=== PATIENT | male | born 1960 ===

== ENCOUNTER 2020-08-24 12:28 | Emergency (ER) | payer OTHER ==
[2020-08-24] MEDS ORDERED: Sodium Chloride 0.9% 10 ML Syringe FLUSH PRN (12:58)
--- NOTE | 2020-08-24 12:58 | EDM.PDOC ---
ED HPI GENERAL MEDICAL PROBLEM - General Chief Complaint: Gastrointestinal Problem Stated Complaint: DIZZINESS, NAUSEA Time Seen by Provider: 08/24/20 12:55 Source of Information: Reports: Patient, Significant Other. Denies: Old Records (No [facility] records available) History Limitations: Reports: No Limitations - History of Present Illness INITIAL COMMENTS - FREE TEXT/NARRATIVE: Patient was brought to the emergency room via private automobile by his significant other for evaluation of progressive vertigo and dizziness associated with some diaphoresis, nausea, and one episode of emesis shortly prior to arrival. Patient did take 1 Dramamine, however MS occurred shortly thereafter. The patient denies any chest pain/pressure, heart flutter, orthostasis, ortho pnea, paresthesias, recent decreased exercise tolerance, or any other anginal- type symptoms. No recent history of abdominal pain, heartburn, diarrhea, melena, gross hematochezia, or any food intolerance, including fatty foods, etc. with normal bowel movement earlier this morning. He denies any gross hematuria, colic, or UTI symptoms. The patient also denies any recent fever, cough, wheezing, dyspnea, etc.. No history of recent headaches, visual changes, diplopia, change in mental status, or other change in neurological status. He denies current pain or any known exposure to infection or food poisoning. Onset: Today, Sudden Onset Date: 08/24/20 Onset Time: 11:30 Duration: Getting Worse, Intermittent Location: Reports: Other (No pain) Quality: Reports: Same as Previous Episode Improves with: Reports: None Worsens with: Reports: None Context: Reports: Other (As above). Denies: Sick Contact, Trauma Associated Symptoms: Reports: Nausea/Vomiting. 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 Denies: Allergic Rhinitis, Cataract, Glaucoma, Hard of Hearing, Macular Degeneration, Otitis Media, Retinal Detachment Other HEENT History: Reading glasses. Cardiovascular History: Reports: Heart Murmur, High Cholesterol, Hypertension, Other (See Below). Denies: Afib, Aneurysm, Arrhythmia, Blood Clots/VTE/DVT, CAD, VA, PVD, Syncope Other Cardiovascular History: Hypertension and hyperlipidemia with no current medical therapy. Benign functional heart murmur. Respiratory History: Reports: None. Denies: Asthma, Bronchitis, Recurrent, COPD, Intubation, Previous, PE, Pneumonia, Recurrent, Pneumothorax, Sleep Apnea, TB Gastrointestinal History: Reports: None. Denies: Bowel Obstruction, Celiac Disease, Cholelithiasis, Chronic Constipation, Chronic Diarrhea, Colon Polyp, Diverticulosis, Gastritis, GERD, GI Bleed, Hepatitis, Inflammatory Bowel Disease, Irritable Bowel Syndrome, Jaundice, Pancreatitis Genitourinary History: Reports: None. Denies: Acute Renal Failure, BPH, Chronic Renal Insuffiency, Renal Calculus, Retention, Urinary, STD, Urinary Incontinence, UTI, Recurrent Musculoskeletal History: Reports: Other (See Below). Denies: Amputation, Arthritis, Back Pain, Chronic, Gout, Neck Pain, Chronic, Osteoarthritis, RA, SLE Other Musculoskeletal History: Left proximal humeral, left mid radial ulnar, and left wrist fracture at about age 10. Neurological History: Reports: Vertigo. Denies: Cerebral Aneurysms, Concussion, CVA, Headaches, Chronic, Head Trauma, Migraines, MS, Neuropathy, Peripheral, Parkinson's, Seizure, TIA Psychiatric History: Reports: None. Denies: Abuse, Victim of, ADD, ADHD, Anxiety, Depression, Psych Hospitalization(s), PTSD, Suicide Attempt, Suicidal Ideation Endocrine/Metabolic History: Reports: None. Denies: Diabetes, Type I, Diabetes, Type II, Diabetes Mellitus, Type 3c, Hypothyroidism, IDDM Hematologic History: Reports: None. Denies: Anemia, Blood Transfusion(s), Iron Deficiency Immunologic History: Denies: AIDS, HIV, SLE Oncologic (Cancer) History: Reports: None. Denies: Basal Cell Carcinoma, Colon, Hodgkin's Lymphoma, Leukemia, Lung, Lymphoma, Malignant Melanoma, Non-Hodgkin's Lymphoma, Prostate, Squamous Cell Carcinoma Dermatologic History: Reports: None. Denies: Eczema, Psoriasis - Infectious Disease History Infectious Disease History: Reports: Chicken Pox, Measles, Shingles (Abdominal/chest region at age 3 and then in the same region at about age 12.). Denies: C-Difficile, Meningitis, Mononucleosis, MRSA, Mumps, Novel Coronavirus (J&J immunization in July 2020.), Pertussis (Whooping Cough), Rheumatic Fever, Rubella, Scarlet Fever, TB, VRE - Past Surgical History Head Surgeries/Procedures: Reports: None HEENT Surgical History: Reports: Eye Surgery, Oral Surgery, Other (See Below). Denies: Adenoidectomy, Cataract Surgery, Laser Surgery, LASIK, Myringotomy w Tube(s), Naso-Sinus Surgery, Tonsillectomy Other HEENT Surgeries/Procedures: Repair of right eye injury secondary to foreign body at age 3. Dental extractions. Cardiovascular Surgical History: Reports: None. Denies: Varicose, Vascular Surgery Respiratory Surgical History: Reports: None. Denies: Thoracentesis GI Surgical History: Reports: Appendectomy, Hernia, Inguinal, Other (See Below). Denies: Cholecystectomy, Colonoscopy, EGD, Hernia, Abdominal, Hernia Repair/Other, Polypectomy Other GI Surgeries/Procedures: Appendectomy at age 22. Bilateral inguinal hernia repairs in 2013. Male Surgical History: Reports: Circumcision, Other (See Below). Denies: TURP-Transurethral Resection of Prostate, Vasectomy Other Male Surgeries/Procedures: Circumcision as an infant. Endocrine Surgical History: Denies: None, Thyroid Biopsy Neurological Surgical History: Reports: None. Denies: C-Spine, Discectomy, Laminectomy, Lumbar Spine, Sacral Spine, Spinal Fusion, Thoracic Spine, Vertebroplasty Musculoskeletal Surgical History: Reports: None. Denies: Arthroscopic Procedure, Carpal Tunnel, Ganglion Cyst, Joint Replacement, ORIF, Shoulder Surgery Oncologic Surgical History: Reports: None Dermatological Surgical History: Reports: None - Past Imaging History Past Imaging History: Reports: None. Denies: Cardiac Echo, Stress Testing Social & Family History - Family History HEENT: Reports: Glaucoma, Other (See Below). Denies: Macular Degeneration, Retinal Detachment Other HEENT Family History: Mother with glaucoma. Cardiac: Reports: Bypass, CAD, Hypertension, Other (See Below). Denies: Afib, Aneurysm, Arrhythmia, Blood Clots/VTE/DVT, High Cholesterol, VA, PVD/COD, Syncope Other Cardiac Family History: Father with CABG x4 at age 67. Hypertension in father, sister, and brother. Respiratory: Reports: COPD, Sleep Apnea, Other (See Below). Denies: Asthma, PE, Pneumothorax Other Respiratory Family Hisory: Father with COPD with history of tobacco use. Sister with sleep apnea. GI: Reports: Colon Polyps, Other (See Below). Denies: Celiac Disease, Cholelithiasis, GERD, GI bleed, Inflammatory Bowel Disease, Irritable Bowel Syndrome, PUD Other GI Family History: Sister with colon polyps and colon cancer as below. : Reports: None. Denies: Renal Calculus, Renal Disease/Insufficiency OBGYN: Reports: None. Denies: Endometriosis, Recurrent Spontaneous Musculoskeletal: Reports: None. Denies: Arthritis, Gout, Osteoarthritis, RA, SLE Neurological: Denies: Alzheimers Disease, CVA, Dementia, Migraines, MS, Parkinson's, TIA Psychiatric: Reports: None. Denies: Abuse, Victim of, ADD, ADHD, Anxiety, Depression, Psych Hospitalization(s), PTSD, Suicide Attempt Endocrine/Metabolic: Reports: Diabetes, type II, IDDM, Other (See Below). Denies: Diabetes, Type I, Hypothyroidism Other Endocrine/Metabolic Family History: Mother and sister with IDDM. Hematologic: Reports: None. Denies: Anemia, SLE Immunologic: Reports: None. Denies: AIDS, HIV, SLE Dermatologic: Reports: None. Denies: Eczema, Psoriasis Oncologic: Reports: Colon, Leukemia, Other (See Below). Denies: Hodgkin's Lymphoma, Lymphoma, Pancreatic, Prostate, Skin Other Oncologic Family History: Mother with fatal leukemia at age 51. Sister with metastatic colon cancer at age 66. - Tobacco Use Tobacco Use Status *Q: Former Tobacco User Tobacco Use Within Last Twelve Months: Smokeless Tobacco Years of Tobacco use: 25 Packs/Tins Daily: 0.1 Packs/Tins Daily Comment: Chewing tobacco use of 1 can/week between ages 30 and 53. Used Tobacco, but Quit: No Smoking Cessation Information Provided To Patient: No Second Hand Smoke Exposure: No Second Hand Smoke Education Provided: No - Caffeine Use Caffeine Use: Reports: Coffee (3 cups/day). Denies: Energy Drinks, Soda, Tea - Alcohol Use Alcohol Use History: Yes Days Per Week of Alcohol Use: 0 Number of Drinks Per Day: 6 Number of Drinks Per Day Comment: Usually beer on special occasions. No previous DWIs, problems with alcohol abuse, etc. Total Drinks Per Week: 0 Alcohol Use in Last Twelve Months: Yes - Recreational Drug Use Recreational Drug Use: No Drug Use in Last 12 Months: No Recreational Drug Type: Denies: Amphetamines (Speed), Cocaine, Heroin, Inhalants (Glues, Solvents, Aerosols), LSD (Acid), Marijuana/Hashish, Methamphetamine, Morphine, Oxycodone - Living Situation & Occupation Living situation: Reports: (2002. One child from that marriage.), with Significant Other Occupation: Employed ([employer] ED ROS GENERAL - Review of Systems Review Of Systems: Comprehensive ROS is negative, except as noted in HPI. ED EXAM, GENERAL - Physical Exam Exam: See Below Exam Limited By: No Limitations General Appearance: Alert, WD/WN, No Apparent Distress, Anxious (Mild) Eye Exam: Bilateral Eye: EOMI, Normal Fundi, Normal Inspection (No vertigo or nystagmus including with head movement and provocation), PERRL Ears: Normal External Exam, Normal Canal, Hearing Grossly Normal, Normal TMs Nose: Normal Inspection, Normal Mucosa, No Blood Throat/Mouth: Normal Inspection, Normal Lips, Normal Teeth (Multiple missing teeth with no acute caries), Normal Gums, Normal Oropharynx, Normal Voice, No Airway Compromise. No: Dysphagia, Perioral Cyanosis Head: Atraumatic, Normocephalic. No: Facial Swelling, Facial Tenderness, Sinus Tenderness Neck: Normal Inspection, Supple, Non-Tender, Full Range of Motion. No: Carotid Bruit, Lymphadenopathy (L), Lymphadenopathy (R), Thyromegaly Respiratory/Chest: No Respiratory Distress, Lungs Clear, Normal Breath Sounds, No Accessory Muscle Use, Chest Non-Tender. No: Pleural Rub, Retractions Cardiovascular: Normal Peripheral Pulses, Regular Rate, Rhythm, No Edema, No Gallop, No JVD, No Murmur, No Rub. No: Gallop/S3, Gallop/S4, Friction Rub Peripheral Pulses: 2+: Radial (L), Radial (R), Dorsalis Pedis (L), Dorsalis Pedis (R) GI/Abdominal: Normal Bowel Sounds, Soft, Non-Tender, No Organomegaly, No Distention, No Abnormal Bruit, No Mass, Pelvis Stable. No: Guarding (Male) Exam: Deferred Rectal (Males) Exam: Deferred Back Exam: Normal Inspection, Full Range of Motion. No: CVA Tenderness (L), CVA Tenderness (R), Muscle Spasm Extremities: Normal Inspection, Normal Range of Motion, Non-Tender, No Pedal Edema, Normal Capillary Refill. No: Ele's Sign Neurological: Alert, Oriented, CN II-XII Intact, Normal Cognition, Normal Gait, Normal Reflexes (Negative Babinski's), No Motor/Sensory Deficits Psychiatric: Anxious (Mild), Depressed Mood (Borderline) Skin Exam: Warm, Dry, Intact, Normal Color, No Rash. No: Diaphoretic, Wound/Incision Lymphatic: No Adenopathy #1 Interpretation EKG Date: 08/24/20 Time: 14:23 Rhythm: NSR Rate (Beats/Min): 63 Reese: Normal (Neutral) P-Wave: Enlarged (Mild diffuse biphasic P waves) QRS: Normal (0.09 seconds) ST-T: Other (Peaked T waves) QT: Normal WA/PQ Interval: 0.18 seconds with diffuse biphasic P waves and possible pulmonary hypertension by EKG. Comparison: NA - No Prior EKG EKG Interpretation Comments: 1. No acute ischemic changes 2. Left atrial enlargement 3. Pulmonary hypertension by EKG Course - Vital Signs Last Recorded V/S: Last Vital Signs Temp 36.4 C 08/24/20 12:39 Pulse 76 08/24/20 18:30 Resp 16 08/24/20 18:30 BP 159/77 H 08/24/20 12:49 Pulse Ox 98 08/24/20 18:30 Vital Signs - 24 hr 08/24/20 08/24/20 08/24/20 12:39 12:49 12:58 Temperature [ 36.4 C Oral] Pulse, 63 57 L Peripheral [ Left Pulse Oximetry] Respiratory 20 20 Rate Blood Pressure 159/77 H 159/77 H [Right Upper Arm] O2 Sat by Pulse 100 99 Oximetry O2 Sat by Pulse 98 Oximetry [Room Air] - Orders/Labs/Meds Orders: Active Orders 24 hr Category Date Time Status Abdomen Series w Chest 1V [CR] Routine Exams 08/24/20 13:00 Taken CULTURE BLOOD [BC] Stat Lab 08/24/20 13:25 Received CULTURE BLOOD [BC] Stat Lab 08/24/20 14:33 Received CULTURE URINE [RM] Routine Lab 08/24/20 14:35 Received Blood Culture x2 Reflex Set [OM.PC] Urgent Oth 08/24/20 14:20 Ordered Isolation [COMM] Routine Oth 08/24/20 13:01 Active Obtain Past Medical Record [OM.PC] Urgent Oth 08/24/20 12:58 Active Peripheral IV Insertion Adult [OM.PC] Stat Oth 08/24/20 12:58 Ordered Resuscitation Status Stat Resus Stat 08/24/20 12:58 Ordered Labs: Laboratory Tests 08/24/20 08/24/20 08/24/20 Range/Units 13:25 13:25 13:25 WBC 7.3 (4.0-10.2) K/uL RBC 4.79 (4.33-5.41) M/uL Hgb 14.5 (13.1-16.8) g/dL Hct 40.7 (39.0-49.0) % MCV 85.0 (84.0-98.0) fL MCH 30.3 (28.2-33.3) pg MCHC 35.6 (31.7-36.0) g/dL RDW 13.9 (11.2-14.1) % Plt Count 139 L (150-350) K/uL Neut % (Auto) 70.8 (45.0-80.0) % Lymph % (Auto) 21.3 (10.0-50.0) % [place] % (Auto) 6.7 (2.0-14.0) % Eos % (Auto) 0.8 (0.0-5.0) % Baso % (Auto) 0.4 (0.0-2.0) % Neut # (Auto) 5.16 (1.40-7.00) K/uL Lymph # (Auto) 1.55 (0.50-3.50) K/uL [place] # (Auto) 0.49 (0.00-1.00) K/uL Eos # (Auto) 0.06 (0.00-0.50) K/uL Baso # (Auto) 0.03 (0.00-0.20) K/uL PT 10.4 (9.5-12.0) SEC INR 1.0 APTT 21.2 L (24.5-32.8) SEC D-Dimer, Quantitative 254 (0-400) ng/mL Sodium (136-145) mmol/L Potassium (3.5-5.1) mmol/L Chloride (98-107) mmol/L Carbon Dioxide (21.0-32.0) mmol/L BUN (7-18) mg/dL Creatinine (0.51-1.17) mg/dL Est Cr Clr Drug Dosing Estimated GFR (MDRD) mL/min Glucose (70-99) mg/dL Lactic Acid (0.4-2.0) mmol/L Uric Acid (2.6-7.2) mg/dL Calcium (8.5-10.1) mg/dL Magnesium (1.8-2.4) mg/dL Total Bilirubin (0.2-1.0) mg/dL AST (15-37) U/L ALT (12-78) U/L Alkaline Phosphatase (46-116) IU/L Creatine Kinase (26-308) U/L Creatine Kinase Index (0.0-2.5) % CK-MB (CK-2) (0.00-3.60) ng/mL Troponin I (0.000-0.056) ng/mL NT-Pro-B Natriuret Pep (0-125) pg/mL Total Protein (6.4-8.2) g/dL Albumin (3.4-5.0) g/dL TSH, Ultra Sensitive (0.358-3.740) mIU/mL Specimen Type Urine Color Urine Appearance Urine pH (5.0-9.0) Ur Specific [place] (1.005-1.030) Urine Protein (NEGATIVE) mg/dL Urine Glucose (UA) (NEGATIVE) mg/dL Urine Ketones (NEGATIVE) mg/dL Urine Occult Blood (NEGATIVE) Urine Nitrite (NEGATIVE) Urine Bilirubin (NEGATIVE) Urine Urobilinogen (0.2-1.0) E.U./dL Ur Leukocyte Esterase (NEGATIVE) Urine RBC /HPF Urine WBC /HPF Ur Epithelial Cells /LPF Urine Bacteria (NONE TO FEW) /HPF Urine Mucus (NEGATIVE) /LPF SARS-CoV-2 RNA (KAYLEY) (NEGATIVE) 08/24/20 08/24/20 08/24/20 Range/Units 13:25 13:25 13:50 WBC (4.0-10.2) K/uL RBC (4.33-5.41) M/uL Hgb (13.1-16.8) g/dL Hct (39.0-49.0) % MCV (84.0-98.0) fL MCH (28.2-33.3) pg MCHC (31.7-36.0) g/dL RDW (11.2-14.1) % Plt Count (150-350) K/uL Neut % (Auto) (45.0-80.0) % Lymph % (Auto) (10.0-50.0) % [place] % (Auto) (2.0-14.0) % Eos % (Auto) (0.0-5.0) % Baso % (Auto) (0.0-2.0) % Neut # (Auto) (1.40-7.00) K/uL Lymph # (Auto) (0.50-3.50) K/uL [place] # (Auto) (0.00-1.00) K/uL Eos # (Auto) (0.00-0.50) K/uL Baso # (Auto) (0.00-0.20) K/uL PT (9.5-12.0) SEC INR APTT (24.5-32.8) SEC D-Dimer, Quantitative (0-400) ng/mL Sodium 139 (136-145) mmol/L Potassium 3.7 (3.5-5.1) mmol/L Chloride 103 (98-107) mmol/L Carbon Dioxide 22.0 (21.0-32.0) mmol/L BUN 20 H (7-18) mg/dL Creatinine 0.83 (0.51-1.17) mg/dL Est Cr Clr Drug Dosing TNP Estimated GFR (MDRD) > 60 mL/min Glucose 167 H (70-99) mg/dL Lactic Acid 3.8 H (0.4-2.0) mmol/L Uric Acid 7.3 H (2.6-7.2) mg/dL Calcium 9.3 (8.5-10.1) mg/dL Magnesium 1.8 (1.8-2.4) mg/dL Total Bilirubin 0.4 (0.2-1.0) mg/dL AST 22 (15-37) U/L ALT 38 (12-78) U/L Alkaline Phosphatase 56 (46-116) IU/L Creatine Kinase 113 (26-308) U/L Creatine Kinase Index 1.2 (0.0-2.5) % CK-MB (CK-2) 1.30 (0.00-3.60) ng/mL Troponin I 0.000 (0.000-0.056) ng/mL NT-Pro-B Natriuret Pep 5 (0-125) pg/mL Total Protein 7.5 (6.4-8.2) g/dL Albumin 4.0 (3.4-5.0) g/dL TSH, Ultra Sensitive 1.039 (0.358-3.740) mIU/mL Specimen Type Urine Color Urine Appearance Urine pH (5.0-9.0) Ur Specific [place] (1.005-1.030) Urine Protein (NEGATIVE) mg/dL Urine Glucose (UA) (NEGATIVE) mg/dL Urine Ketones (NEGATIVE) mg/dL Urine Occult Blood (NEGATIVE) Urine Nitrite (NEGATIVE) Urine Bilirubin (NEGATIVE) Urine Urobilinogen (0.2-1.0) E.U./dL Ur Leukocyte Esterase (NEGATIVE) Urine RBC /HPF Urine WBC /HPF Ur Epithelial Cells /LPF Urine Bacteria (NONE TO FEW) /HPF Urine Mucus (NEGATIVE) /LPF SARS-CoV-2 RNA (KAYLEY) Negative (NEGATIVE) 08/24/20 08/24/20 Range/Units 14:35 17:49 WBC (4.0-10.2) K/uL RBC (4.33-5.41) M/uL Hgb (13.1-16.8) g/dL Hct (39.0-49.0) % MCV (84.0-98.0) fL MCH (28.2-33.3) pg MCHC (31.7-36.0) g/dL RDW (11.2-14.1) % Plt Count (150-350) K/uL Neut % (Auto) (45.0-80.0) % Lymph % (Auto) (10.0-50.0) % [place] % (Auto) (2.0-14.0) % Eos % (Auto) (0.0-5.0) % Baso % (Auto) (0.0-2.0) % Neut # (Auto) (1.40-7.00) K/uL Lymph # (Auto) (0.50-3.50) K/uL [place] # (Auto) (0.00-1.00) K/uL Eos # (Auto) (0.00-0.50) K/uL Baso # (Auto) (0.00-0.20) K/uL PT (9.5-12.0) SEC INR APTT (24.5-32.8) SEC D-Dimer, Quantitative (0-400) ng/mL Sodium (136-145) mmol/L Potassium (3.5-5.1) mmol/L Chloride (98-107) mmol/L Carbon Dioxide (21.0-32.0) mmol/L BUN (7-18) mg/dL Creatinine (0.51-1.17) mg/dL Est Cr Clr Drug Dosing Estimated GFR (MDRD) mL/min Glucose (70-99) mg/dL Lactic Acid 1.8 (0.4-2.0) mmol/L Uric Acid (2.6-7.2) mg/dL Calcium (8.5-10.1) mg/dL Magnesium (1.8-2.4) mg/dL Total Bilirubin (0.2-1.0) mg/dL AST (15-37) U/L ALT (12-78) U/L Alkaline Phosphatase (46-116) IU/L Creatine Kinase (26-308) U/L Creatine Kinase Index (0.0-2.5) % CK-MB (CK-2) (0.00-3.60) ng/mL Troponin I (0.000-0.056) ng/mL NT-Pro-B Natriuret Pep (0-125) pg/mL Total Protein (6.4-8.2) g/dL Albumin (3.4-5.0) g/dL TSH, Ultra Sensitive (0.358-3.740) mIU/mL Specimen Type Urincc Urine Color Yellow Urine Appearance Clear Urine pH 7.5 (5.0-9.0) Ur Specific [place] 1.025 (1.005-1.030) Urine Protein Negative (NEGATIVE) mg/dL Urine Glucose (UA) Negative (NEGATIVE) mg/dL Urine Ketones Negative (NEGATIVE) mg/dL Urine Occult Blood Trace-intact H (NEGATIVE) Urine Nitrite Negative (NEGATIVE) Urine Bilirubin Negative (NEGATIVE) Urine Urobilinogen 0.2 (0.2-1.0) E.U./dL Ur Leukocyte Esterase Negative (NEGATIVE) Urine RBC 0-5 /HPF Urine WBC 0-5 /HPF Ur Epithelial Cells Not seen /LPF Urine Bacteria Rare (NONE TO FEW) /HPF Urine Mucus Occasional H (NEGATIVE) /LPF SARS-CoV-2 RNA (KAYLEY) (NEGATIVE) Urine specimen sent for culture and sensitivity. Blood cultures x2 were collected Meds: Medications Discontinued Medications Generic Name Dose Route Start Last Admin Trade Name Freq PRN Reason Stop Dose Admin Ceftriaxone Sodium 2 gm 08/24/20 14:30 08/24/20 15:15 Ceftriaxone 2 Gm Vial IVPUSH 2 gm Q24H NIMA Administration Famotidine 40 mg 08/24/20 12:58 08/24/20 13:29 Famotidine 20 Mg/2 Ml Sdv IVPUSH 08/24/20 12:59 40 mg ONETIME ONE Administration Lactated Ringer's 1,000 mls @ 999 mls/hr 08/24/20 13:04 08/24/20 13:29 Ringers, Lactated IV 08/24/20 14:04 999 mls/hr .BOLUS ONE Administration Lactated Ringer's 1,000 mls @ 999 mls/hr 08/24/20 14:29 08/24/20 15:15 Ringers, Lactated IV 08/24/20 15:29 999 mls/hr .BOLUS ONE Administration Lactated Ringer's 1,000 mls @ 150 mls/hr 08/24/20 16:15 08/24/20 16:21 Ringers, Lactated IV 150 mls/hr ASDIRECTED NIMA Administration Ondansetron HCl 4 mg 08/24/20 13:00 08/24/20 13:28 Ondansetron 4 Mg/2 Ml Sdv IVPUSH 08/24/20 13:01 4 mg ONETIME ONE Administration Promethazine HCl 50 mg 08/24/20 13:04 08/24/20 13:29 Promethazine 25 Mg/Ml Sdv IM 08/24/20 13:05 50 mg ONETIME ONE Administration Sodium Chloride 10 ml 08/24/20 12:58 Sodium Chloride 0.9% 10 Ml Syringe FLUSH ASDIRECTED PRN Keep Vein Open - Radiology Interpretation Free Text/Narrative:: 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 Acute abdominal x-rays shows mild pulmonary obstructive disease with no cardiomegaly, CHF, pulmonary infiltrates, pneumothorax, etc. Moderate osteoarthritic changes were present. Departure - Departure Time of Disposition: 19:00 Disposition: Home, Self-Care 01 Condition: Good Clinical Impression: Lactic acid increased, Vertigo, PVCs (premature ventricular contractions), Hyperuricemia, Thrombocytopenia, Hypertension Nausea and vomiting Qualifiers: Vomiting type: unspecified Vomiting Intractability: non-intractable Qualified Code(s): R11.2 - Nausea with vomiting, unspecified - Discharge Information *PRESCRIPTION DRUG MONITORING PROGRAM REVIEWED*: Not Applicable *COPY OF PRESCRIPTION DRUG MONITORING REPORT IN PATIENT CHAVO: Not Applicable Prescriptions: Meclizine [Antivert] 25 mg PO Q6H PRN #30 tab PRN Reason: Dizziness Instructions: Vertigo, [id number] Referrals: PCP,None [Primary Care Provider] - Forms: ED Department Discharge Additional Instructions: 1. Follow up with your regular provider in 10-14 days as needed, if symptoms persist. Bring these discharge instructions with you to that visit.. 2. Sedation and dry mouth precautions with meclizine for any vertigo, nausea, dizziness, etc. with this to be used with caution 3. Thayer diet including encouragement of oral fluids such as sports drinks, etc. for 24-48 hours as directed. Advance to high-fiber, heart healthy diet as tolerated thereafter. 4. Advance activity as tolerated with fall, injury, etc. precautions, if vertigo recurs. 5. Immediately after this visit verify that your cellular telephone's voicemail has been activated and is empty. Also verify that your home telephone's answering machine is operating properly and has space to receive messages. Note that it is sometimes necessary for us to be able to contact you at a later date to discuss your medical care. 6. Please remember that we are ALWAYS here for you and want to answer any questions you may have. Feel free to call the hospital any time and we call you back CESAR. Sepsis Event Note (ED) - Evaluation Sepsis Screening Result: No Definite Risk - Focused Exam Vital Signs: Vital Signs Temp Pulse Resp BP Pulse Ox Pulse Ox 08/24/20 18:30 76 16 98 08/24/20 12:58 98 08/24/20 12:49 57 L 20 159/77 H 99 08/24/20 12:39 36.4 C 63 20 159/77 H 100 - Problem List & Annotations (1) Nausea and vomiting SNOMED Code(s): 07862823 Code(s): R11.2 - NAUSEA WITH VOMITING, UNSPECIFIED Status: Acute Priority: High Onset Date: 08/24/20 Annotation/Comment:: Known history of chronic vertigo with no neurological deficits at this time. Symptoms were somewhat more substantial than in the past, however no direct evidence of infection, cardiac symptoms, etc. Symptoms completely resolved at time of discharge. Qualifiers: Vomiting type: unspecified Vomiting Intractability: non-intractable Qualified Code(s): R11.2 - Nausea with vomiting, unspecified (2) Lactic acid increased SNOMED Code(s): 78594116 Code(s): E87.2 - ACIDOSIS Status: Acute Priority: High Onset Date: 08/24/20 Annotation/Comment:: Patient was aggressively hydrated in the emergency room with sepsis protocol followed. Note aggressive IV hydration with lactated Ringer's with subsequent normalization after extended emergency room observation. No leukocytosis, fever, etc. with no direct evidence of infection or sepsis. High-dose IV Rocephin was given as prophylaxis with no further indication for antibiotic therapy at this time. Various therapeutic options were discussed with the patient and his , who are requesting not to be hospitalized for further treatment or observation. (3) Hyperuricemia SNOMED Code(s): 66864361 Code(s): E79.0 - HYPERURICEMIA W/O SIGNS OF INFLAM ARTHRIT AND TOPHACEOUS DIS Status: Acute Priority: Medium Onset Date: 08/24/20 Annotation/Comment:: Newly diagnosed. No history of gout type symptoms with his arthritis otherwise being stable. (4) PVCs (premature ventricular contractions) SNOMED Code(s): 58273472 Code(s): I49.3 - VENTRICULAR PREMATURE DEPOLARIZATION Status: Acute Priority: Medium Onset Date: 08/24/20 Annotation/Comment:: Newly diagnosed. Observe for now (5) Thrombocytopenia SNOMED Code(s): 470196102 Code(s): D69.6 - THROMBOCYTOPENIA, UNSPECIFIED Status: Acute Priority: Medium Onset Date: 08/24/20 Annotation/Comment:: Observe for now (6) Vertigo SNOMED Code(s): 378152241 Code(s): R42 - DIZZINESS AND GIDDINESS Status: Chronic Priority: High Annotation/Comment:: As above (7) Hypertension SNOMED Code(s): 70549008 Code(s): I10 - ESSENTIAL (PRIMARY) HYPERTENSION Status: Chronic Priority: Medium Annotation/Comment:: Somewhat elevated during his emergency room care. Observe for now with continued close observation by his regular provider. Note that the patient is visiting the area. Qualifiers: Hypertension type: essential hypertension Qualified Code(s): I10 - Essential (primary) hypertension - Problem List Review Problem List Initiated/Reviewed/Updated: Yes - My Orders Last 24 Hours: My Active Orders 08/24/20 12:58 Obtain Past Medical Record [OM.PC] Urgent Peripheral IV Insertion Adult [OM.PC] Stat Resuscitation Status Stat 08/24/20 13:00 Abdomen Series w Chest 1V [CR] Routine 08/24/20 13:01 Isolation [COMM] Routine 08/24/20 13:25 CULTURE BLOOD [BC] Stat 08/24/20 14:20 Blood Culture x2 Reflex Set [OM.PC] Urgent 08/24/20 14:33 CULTURE BLOOD [BC] Stat 08/24/20 14:35 CULTURE URINE [RM] Routine - Assessment/Plan Last 24 Hours: My Active Orders 08/24/20 12:58 Obtain Past Medical Record [OM.PC] Urgent Peripheral IV Insertion Adult [OM.PC] Stat Resuscitation Status Stat 08/24/20 13:00 Abdomen Series w Chest 1V [CR] Routine 08/24/20 13:01 Isolation [COMM] Routine 08/24/20 13:25 CULTURE BLOOD [BC] Stat 08/24/20 14:20 Blood Culture x2 Reflex Set [OM.PC] Urgent 08/24/20 14:33 CULTURE BLOOD [BC] Stat 08/24/20 14:35 CULTURE URINE [RM] Routine Assessment:: As above Plan: As above. Extensive precautions were given to the patient and his , who are in agreement with the treatment plan.
[2020-08-24] MEDS: Ondansetron 4 MG/2 ML SDV IVPUSH ONE (13:28)
[2020-08-24] MEDS: Lactated Ringers 1,000 ML IV ONE ×2 (13:29→15:15)
[2020-08-24] MEDS: Famotidine 20 MG/2 ML SDV IVPUSH ONE (13:29)
[2020-08-24] MEDS: Promethazine 25 MG/ML SDV IM ONE (13:29)
[2020-08-24 13:47] LABS: PTT,PARTIAL THROMBOPLSTIN TIME 21.2 SEC (24.5-32.8)
[2020-08-24 14:01] LABS: CHLORIDE,CL 103 mmol/L (98-107); SODIUM,NA 139 mmol/L (136-145)
[2020-08-24] MEDS: cefTRIAXone 2 GM Vial IVPUSH SCH (15:15)
[2020-08-24] MEDS: Lactated Ringers 1,000 ML IV SCH (16:21)
== END 2020-08-24 19:00 | disposition home or self-care (01) ==
LOC: EDSEX → LL.ED 12:28
DX: I49.3 Ventricular premature depolarization (principal); E79.0 Hyperuricemia without signs of inflammatory arthritis and tophaceous disease; R11.2 Nausea with vomiting, unspecified; R74.01 Elevation of levels of liver transaminase levels; R42 Dizziness and giddiness; D69.6 Thrombocytopenia, unspecified; I10 Essential (primary) hypertension; B20 Human immunodeficiency virus [HIV] disease; Z87.891 Personal history of nicotine dependence; Z20.822 Contact with and (suspected) exposure to COVID-19
CPT/HCPCS: 36415; 74022; 80053; 81001; 82550; 82553; 83605; 83735; 83880; 84443; 84484; 84550; 85025; 85379; 85610; 85730; 87040; 87086; 87804; 93005; 93010; 96372; 96374; 96375; 99284; 99284-25; J0696; J2405; J2550; J3490; J7120; U0002